=== PATIENT | male | born 1970 | race Native Hawaiian/Other Pacific Islander ===

== ENCOUNTER 2022-10-05 20:19 | Emergency (ER) | payer OTHER ==
[~2022-10-05] VITALS: Ht 182.9 cm; Wt 156.9 kg
[2022-10-05 20:30] VITALS: BP 150/79; TEMP 97.9
[2022-10-05 20:52] LABS: PLATELET COUNT 204 K/uL (142-355)
[2022-10-05 21:00] LABS: POTASSIUM 3.7 mmol/L (3.6-5.2)
[2022-10-06] MEDS ORDERED: ARIPIPRAZOLE30 MG PO (07:21)
[2022-10-06] MEDS ORDERED: AMLODIPINE BESYLATE PO (07:22)
[2022-10-06] MEDS ORDERED: [UNRECOGNIZED DRUG - OTHER] ×2 (07:24→07:25)
[2022-10-06] MEDS ORDERED: DIVA500T2 PO (07:26)
[2022-10-06] MEDS ORDERED: TAMS0.4C PO (09:29)
[2022-10-06] MEDS ORDERED: LIPITOR80 MG PO (09:30)
[2022-10-06] MEDS ORDERED: TORSEMIDE20 MG PO (09:31)
[2022-10-06] MEDS ORDERED: TRAZ100T PO (09:31)
[2022-10-06] MEDS ORDERED: ELIQUIS5 MG PO (09:33)
[2022-10-06] MEDS ORDERED: RISP0.5T2 PO (09:34)
[2022-10-06] MEDS ORDERED: LEVE500T5 PO (09:34)
[2022-10-06] MEDS ORDERED: RISP2TAB2 PO (09:35)
[2022-10-06] MEDS ORDERED: TRAMADOL HYDROC50 MG PO (09:35)
[2022-10-06] MEDS ORDERED: NEURONTIN 100M100 MG PO (09:36)
[2022-10-06] MEDS ORDERED: HALO5INJ3 IM (09:37)
[2022-10-06] MEDS ORDERED: HALO5TAB10 PO (09:37)
[2022-10-06] MEDS ORDERED: TIZA4TAB5 PO (09:38)
== END 2022-10-05 21:25 | disposition home or self-care (01) ==
LOC: ED 20:19
PROVIDERS: Emergency Medicine Emergency Medical Services
DX: R45.6 Violent behavior (principal); R45.1 Restlessness and agitation; Z02.79 Encounter for issue of other medical certificate
CPT/HCPCS: 36415; 80053; 81002; 85027; 87635; 93005; 99283; U0003